=== PATIENT | female | born 1975 | race Caucasian/White ===

== ENCOUNTER 2023-05-26 10:24 | Outpatient (CLI) | payer OTHER, BC, SELFPAY | END 2023-05-26 10:25 | disposition home or self-care (01) | LOC: INJ CL 10:29 | PROVIDERS: Visit Provider Family Medicine | DX: M54.16 Radiculopathy, lumbar region (principal); M51.26 Other intervertebral disc displacement, lumbar region; M51.36 Other intervertebral disc degeneration, lumbar region | CPT/HCPCS: 62323; J0702; Q9966 ==